=== PATIENT | female | born 1935 | race Two or more races ===

== ENCOUNTER 2023-03-18 09:05 | Outpatient (CLI) | payer OTHER | END 2023-03-18 09:25 | disposition home or self-care (01) | LOC: EDBD 09:05 → RAD 09:05 | PROVIDERS: ATTEND Internal Medicine Gastroenterology | DX: K59.09 Other constipation (principal); R19.7 Diarrhea, unspecified; R11.2 Nausea with vomiting, unspecified; R11.0 Nausea ==